=== PATIENT | female | born 1960 | race African-American/Black ===

== ENCOUNTER 2019-09-18 17:07 | Emergency (ER) | payer MEDICARE, SELFPAY ==
--- NOTE | ~2019-09-18 | CT_ITS ---
EXAMINATION: CT brain wo con DATE: 09/19/2019 00:34 INDICATION: Headache TECHNIQUE: Computed tomography (CT) of the head was performed without intravenous contrast. Sagittal and coronal reconstructions were performed. The mA was adjusted according to patient size. Iterative reconstruction technique was employed. The dose-length product was 605.33 mGy-cm. COMPARISON: None FINDINGS: No acute intracranial hemorrhage, acute infarction or abnormal extra axial fluid collection. Ventricl es are normal and symmetric. No mass/mass effect. Chronic blowout fracture at the right lamina papyra cea. Orbits are otherwise normal. Mild mucosal thickening in the bilateral ethmoid sinuses. Mastoid a ir cells and middle ear cavities are clear. IMPRESSION: 1. Normal for brain. No acute intracranial process. Reviewed, dictated and finalized at location A. F DISPATCHER
--- NOTE | ~2019-09-18 | XR_ITS ---
EXAMINATION: XR chest 2V DATE: 09/18/2019 18:30 INDICATION: Chest pain TECHNIQUE: frontal and lateral views of the chest were obtained. COMPARISON: None FINDINGS: The lungs are clear with no focal airspace opacities, pulmonary edema, pleural effusion or pneumothor ax. The cardiomediastinal silhouette is normal. Large calcified right hilar and mediastinal lymph nod es consistent with old granulomatous disease. Mild thoracic spondylosis. IMPRESSION: 1. No acute cardiopulmonary disease. Reviewed, dictated and finalized at location A. E [facility]EL
--- NOTE | 2019-09-18 17:25 | ED.GENADULT ---
HPI - General Adult General Chief complaint: Extremity Injury, Lower <Guerline Pérez MD - Last Filed: 09/19/19 15:52> Stated complaint: leg pain/cotto <Guerline Pérez MD - Last Filed: 09/19/19 15:52> Time Seen by Provider: 09/18/19 17:23 <Guerline Pérez MD - Last Filed: 09/19/19 15:52> Source: patient <Guerline Pérez MD - Last Filed: 09/19/19 15:52> Mode of arrival: ambulatory <Guerline Pérez MD - Last Filed: 09/19/19 15:52> Limitations: no limitations <Guerline Pérez MD - Last Filed: 09/19/19 15:52> History of Present Illness HPI narrative: A 58 y/o female presents to the ED with c/o sharp right leg pain. Pt states that the right leg pain started when she woke up yesterday and has been constant since. The pain starts in her right buttocks and goes all the way down her leg into her toes. The pain is rated a 10/10 in severity in the ED and is slightly alleviated when she walks on it. Pt took Ibuprofen, Aspirin, a muscle relaxer, and Prednisone for the right leg pain with no relief. She reports bilateral temporal COTTO, cough, chills, and CP, but denies vomiting and back pain. Pt adds that the COTTO is aggravated when she eats. <Guerline Pérez MD - Last Filed: 09/19/19 15:52> MD complaint: Right leg pain <Guerline Pérez MD - Last Filed: 09/19/19 15:52> Onset (ago): day(s) (1) <Guerline Pérez MD - Last Filed: 09/19/19 15:52> Location: lower extremity <Guerline Pérez MD - Last Filed: 09/19/19 15:52> Severity scale (1-10): 10 <Guerline Pérez MD - Last Filed: 09/19/19 15:52> Quality: sharp <Guerline Pérez MD - Last Filed: 09/19/19 15:52> Pain Consistency: constant <Guerline Pérez MD - Last Filed: 09/19/19 15:52> Relieving factors: movement (Walking) <Guerline Pérez MD - Last Filed: 09/19/19 15:52> Associated symptoms: chest pain, cough, fever/chills and headaches (Temporal) <Guerline Pérez MD - Last Filed: 09/19/19 15:52> Treatments prior to arrival: NSAID, aspirin and other (Muscle relaxer, Prednisone) <Guerline Pérez MD - Last Filed: 09/19/19 15:52> Related Data Home medications: Home Medications Medication Instructions Recorded Confirmed azathioprine 09/18/19 clobetasol TOPICAL 09/18/19 cyclobenzaprine mg 09/18/19 hydroxychloroquine 09/18/19 ibuprofen 09/18/19 omeprazole 09/18/19 pravastatin 09/18/19 prednisone 09/18/19 <Guerline Pérez MD - Last Filed: 09/19/19 15:52> Allergies/adverse reactions: Allergies Allergy/AdvReac Type Severity Reaction Status Date / Time Penicillins Allergy Hives Verified 09/18/19 17:46 ciprofloxacin AdvReac Mild Nausea and Verified 09/18/19 17:46 Vomiting <Guerline Pérez MD - Last Filed: 09/19/19 15:52> Review of Systems Review of Systems: All systems reviewed & are unremarkable except as noted in HPI and below <Guerline Pérez MD - Last Filed: 09/19/19 15:52> Constitutional: Constitutional: Reports chills <Guerline Pérez MD - Last Filed: 09/19/19 15:52> Cardiovascular: Cardiovascular: Reports chest pain <Guerline Pérez MD - Last Filed: 09/19/19 15:52> Respiratory: Respiratory: Reports cough <Guerline Pérez MD - Last Filed: 09/19/19 15:52> Gastrointestinal: Gastrointestinal: Denies vomiting <Guerline Pérez MD - Last Filed: 09/19/19 15:52> Musculoskeletal: Musculoskeletal: Denies back pain and Reports other (Right leg pain) <Guerline Pérez MD - Last Filed: 09/19/19 15:52> Neurologic: Reports headache(s) (Temporal) <Guerline Pérez MD - Last Filed: 09/19/19 15:52> [facility] Past Medical History Medical History: Medical History (Updated 09/19/19 @ 02:50 by John Hernandez DO) Medical history unknown <Guerline Pérez MD - Last Filed: 09/19/19 15:52> Surgical History Surgical History: Surgical History (Updated 09/18/19 @ 17:49 by Le Horner) Surgical history unknown <Guerline Pérez MD - Last Filed: 09/19/19 15:52> Social Hist
[2019-09-18 17:36] VITALS: BP 150/78; PULSE 100; RESP 18; TEMP 37.6; O2SAT 99
--- NOTE | 2019-09-18 18:08 | ECG_ITS ---
Measurements Intervals [place] Rate: 100 P: 42 OR: 140 QRS: 31 QRSD: 71 T: 51 QT: 341 QTc: 440 Interpretive Statements SINUS TACHYCARDIA VOLTAGE CRITERIA FOR LVH BORDERLINE ECG Electronically Signed On 09-18-2019 20:31:15 ASSIGNMENT CLERK by Michael Alejandre D.O.
[2019-09-18 18:26] LABS: Basophils Percent Auto 0.2 % (0.2-1.2); Eosinophils Percent Auto 0.4 % (0-4.4); Hematocrit 43.3 % (37.0-47.0); Hemoglobin 13.5 g/dL (12.0-15.0); Immature Granulocyte Absolute 0.02 K/mm3 (0.00-0.031); Immature Granulocyte Percent A 0.2 % (0-0.5); Lymphocytes Percent Auto 8.7 % (18.3-44.2); Mean Corpuscular HGB Conc 31.2 g/dl (32-36); Mean Corpuscular Hemoglobin 29.4 pg (26-34); Mean Corpuscular Volume 94.3 fl (80-100); Mean Platelet Volume 10.6 fl (7.4-10.4); Monocytes Absolute Auto 0.8 K/mm3 (0.1-0.6); Monocytes Percent Auto 9.5 % (2.6-8.5); Neutrophils Absolute Auto 6.5 K/mm3 (1.3-6.7); Platelet Count Result 246 k/mm3 (150-375); Red Blood Count 4.59 M/mm3 (4.2-5.4); Red Cell Distribution Width 12.8 % (11.5-14.5)
[2019-09-18 18:38] LABS: D Dimer 0.42 ug/mL (<0.48)
[2019-09-18 18:40] LABS: Alanine Aminotransferase 22 U/L (4-35); Albumin Level 4.3 g/dL (3.5-5.1); Alkaline Phosphatase 102 U/L (38-126); Aspartate Amino Transferase 22 U/L (14-36); Bilirubin,Total 0.6 mg/dL (0.2-1.3); Blood Urea Nitrogen 12 mg/dL (7-17); Calcium 8.7 mg/dL (8.4-10.2); Carbon Dioxide 28 mmol/L (22-30); Chloride 99 mmol/L (98-107); Estimated CRCL calculation 53 ml/min; Estimated Glomerular Filt Rate > 60; Glucose 105 mg/dL (65-105); Potassium 4.1 mmol/L (3.4-5.0); Sodium 139 mmol/L (137-145)
[2019-09-18] MEDS: CYCLOBENZAPRINE HCL 10 MG TABLET PO (18:44)
[2019-09-18] MEDS: KETOROLAC 15 MG/ML VIAL (*BKC) IV PUSH (18:45)
[2019-09-18 18:51] LABS: Troponin I < 0.012 ng/mL (0.000-0.034)
[2019-09-18 21:21] VITALS: BP 163/88; PULSE 77; RESP 16; O2SAT 98
[2019-09-18 21:28] LABS: Troponin I < 0.012 ng/mL (0.000-0.034)
[2019-09-18 22:49] VITALS: TEMP 38.8
--- NOTE | 2019-09-18 22:49 | PC.NURSE ---
has been made aware of temp 101.9 oral. will not d/c home at this time
[2019-09-18 23:12] LABS: Add Urine Microscopic? YES; Appearance Urine Clear (Clear); Bacteria Urine Trace /hpf; Bilirubin Urine Negative (Negative); Blood Urine Negative (Negative); Color Urine Yellow (Yellow); Glucose Urine UA Negative (Negative); Ketones Urine Negative (Negative); Leukocyte Esterase Ur 1+ LEU/UL (Negative); Mucus Urine Few /lpf; Nitrate Urine Negative (Negative); Protein Urine 2+ mg/dL (Negative); RBC Urine 0-2 /hpf (0-2); Specific Grav Ur 1.028 (1.001-1.035); Squamous Epithelial Cell Urine Moderate /hpf (Few); Urobilinogen Urine Negative mg/dL (<2.0)
[2019-09-18] MEDS: ACETAMINOPHEN 325 MG TABLET 650 MG PO (23:25)
[2019-09-18 23:49] VITALS: TEMP 38.3
[2019-09-19 00:53] LABS: Glucose CSF 63 mg/dL (40-70); Total Protein CSF 36 mg/dL (12-60)
[2019-09-19 00:57] LABS: Troponin I < 0.012 ng/mL (0.000-0.034)
[2019-09-19 01:03] LABS: Appearance CSF Clear (Clear); CSF source CSF; Color CSF Colorless (Colorless)
[2019-09-19 01:17] LABS: Nucleated Cell CSF 5 /uL (0-5); Red Blood Cell CSF 3 (0-2)
[2019-09-19 01:18] LABS: Lymphocytes CSF 60 % (40-80); Monocytes CSF 20 % (15-45)
[2019-09-19 01:19] LABS: Neutrophils CSF 20 % (0-6)
[2019-09-19 02:05] VITALS: BP 122/68; PULSE 93; RESP 20; TEMP 36.9; O2SAT 98
[2019-09-19 06:09] VITALS: BP 120/54; PULSE 92; O2SAT 97
[2019-09-22 10:30] LABS: Herpes Simplex Type 1 DNA PCR Not Detected (Not Detected); Herpes Simplex Type 2 DNA PCR Not Detected (Not Detected)
== END 2019-09-19 06:20 | disposition home or self-care (01) ==
PROVIDERS: Emergency Medicine; Emergency Provider Emergency Medicine
DX: M54.31 Sciatica, right side (principal); J06.9 Acute upper respiratory infection, unspecified; R07.9 Chest pain, unspecified; R51 Headache
CPT/HCPCS: 36415; 62270; 70450; 71046; 80053; 81001; 82945; 84157; 84484; 85025; 85380; 87070; 87529; 87804; 89051; 93005; 96374; 96375; 99285; A9270; J1885; J3010